=== PATIENT | female | born 1950 | race Caucasian/White ===

== ENCOUNTER → 2017-11-03 08:36 | Outpatient (CLI) | payer MEDICARE, SELFPAY ==
--- NOTE | 2017-11-03 08:43 | XR_ITS ---
XR DEXA axial skeleton HISTORY: ITS.REASON: POST MENOPAUSAL ORDERING PHYSICIAN: Alina Grider PATIENT AGE: 67 years FINDINGS: The BMD measured at the Right femoral neck is 0.805 g/cm squared with a T score of -1.7. This is considered Osteopenic according to the World Health Organization criteria. Fracture risk is Moderate. Treatment is advised. L1 L4 density has a T score of 1.7 which is normal IMPRESSION: Osteopenia with moderate fracture risk. Treatment recommended. Recommend follow-up exam November 2019
== END ==
PROVIDERS: Family Provider Internal Medicine Adolescent Medicine; PCP Internal Medicine Adolescent Medicine; Visit Provider Nurse Practitioner Family
DX: Z78.0 Asymptomatic menopausal state (principal); Z13.820 Encounter for screening for osteoporosis
CPT/HCPCS: 77080

== ENCOUNTER → 2020-03-09 08:41 | Outpatient (CLI) | payer MEDICARE, SELFPAY ==
--- NOTE | 2020-03-09 08:46 | XR_ITS ---
PROCEDURE: XR DEXA AXIAL SKELETON CLINICAL HISTORY: OSTEOPENIA, the patient is postmenopausal and currently is on calcium and vitamin-D. COMPARISON: No exams were available for comparison FINDINGS: The total right hip BMD is 0.984 grams/centimeters squared with a T-score of 0.3. The right femoral neck BMD is 0.753 grams/centimeter squared and the T-score is -0.9. The total left hip BMD is 0.901 grams/centimeter squared with a T-score of -0.3. The left femoral neck is 0.738 grams/centimeter squared. The lumbar spine BMD is 1.207 grams/centimeter squared with a T-score of 1.5. IMPRESSION: Essentially normal study although both femoral necks are borderline osteopenic, recommend follow-up study in approximately 2 years Based on these results a follow-up exam is recommended in 2 year. Dictated by: Dr. Spencer Reyes MD 03/09/2020 10:01 Dr. Spencer Reyes MD in [place] 03/09/2020 10:01
== END ==
PROVIDERS: PCP Internal Medicine Adolescent Medicine; Visit Provider Nurse Practitioner Family
DX: M85.89 Other specified disorders of bone density and structure, multiple sites (principal)
CPT/HCPCS: 77080

== ENCOUNTER → 2020-06-12 15:09 | Outpatient (CLI) | payer MEDICARE, SELFPAY ==
--- NOTE | 2020-06-12 15:09 | XR_ITS ---
PROCEDURE: XR FOOT WT BEARING RT 3V CLINICAL INDICATION: pain COMPARISON: No exams were available for comparison FINDINGS: No fracture or dislocation. No lytic or blastic change. There is normal mineralization. There are mild osteoarthritic changes at the navicular cuneiform and cuneiform tarsal joint dorsally. There is a prominent calcaneal spur and a prominent enthesophyte at the Achilles insertion. There are minimal osteoarthritic changes at the 1st MTP joint. Other findings:None. IMPRESSION: Degenerative changes as described above Dictated by: Bladimir Ybarra MD 06/12/2020 16:35 Bladimir Ybarra MD in [place] 06/12/2020 16:35
--- NOTE | 2020-06-12 15:09 | XR_ITS ---
PROCEDURE: XR FOOT WT BEARING LT 3V CLINICAL INDICATION: pain COMPARISON: No exams were available for comparison FINDINGS: No fracture or dislocation. No lytic or blastic change. There is normal mineralization. There are mild osteoarthritic changes of the navicular cuneiform joint. There is a prominent calcaneal spur and small Achilles enthesophyte. Other findings:None. IMPRESSION: As above, no acute finding Dictated by: Bladimir Ybarra MD 06/12/2020 16:50 Bladimir Ybarra MD in [place] 06/12/2020 16:50
--- NOTE | 2020-06-12 15:14 | MM_ITS ---
PROCEDURE: MM DIG SCREENING MAMM BI W/CAD Digital Breast Tomosynthesis Included CLINICAL INDICATION: SCREENING There is a history of breast cancer in the patient's paternal aunt. There has been previous bilateral breast reduction surgery COMPARISON: MG MY Digital Guillermo Screen BILAT from 01/04/2018 TECHNIQUE: Standard CC and MLO images and 3D Tomosynthesis was obtained. R2 CAD reviewed. FINDINGS: The breasts are composed primarily of fat minimal scattered fibroglandular densities in each breast. Couple of benign-appearing microcalcifications in each. There is a calcified oil cyst just deep to the nipple left breast likely secondary to previous breast reduction surgery and development of fat necrosis. This is stable and unchanged from the previous mammogram. There is no new or suspicious lesion in either breast and no suspicious microcalcifications. IMPRESSION: Fibrofatty parenchyma with postsurgical oil cyst deep to the nipple left breast with associated calcifications BI-RAD Category: 2 Benign Finding(s) FOLLOW-UP: 1YR 1 Year Follow-up (A letter has been sent to the patient regarding results of the study.) Dictated by: Dr. Spencer Reyes MD 06/27/2020 08:43 Dr. Spencer Reyes MD in [place] 06/27/2020 08:43
== END ==
PROVIDERS: PCP Internal Medicine Adolescent Medicine; Visit Provider Internal Medicine Adolescent Medicine
DX: M79.672 Pain in left foot (principal); Z12.31 Encounter for screening mammogram for malignant neoplasm of breast; M79.671 Pain in right foot
CPT/HCPCS: 73630; 77063; 77067

== ENCOUNTER → 2021-05-08 16:57 | Outpatient (CLI) | payer MEDICARE, SELFPAY ==
[2021-05-08 17:51] LABS: Basophils # 0.1 K/mm3 (0-0.2); Basophils % 1.1 % (0.1-2.0); Eosinophils # 0.1 K/mm3 (0.0-0.4); Eosinophils % 1.7 % (0.1-12.0); Hematocrit 46.1 % (37.0-47.0); Hemoglobin 14.9 g/dL (12.2-16.2); Lymphocytes % 49.6 % (10-50); Mean Corpuscular HGB Conc 32.3 g/dL (31.8-35.4); Mean Corpuscular Hemoglobin 30.5 pg (27.0-31.2); Mean Corpuscular Volume 94.3 fl (81-99); Mean Platelet Volume 8.7 fl (7.4-10.4); Monocytes # 0.3 K/mm3 (0.1-1.0); Monocytes % 4.9 % (1.7-9.3); Neutrophils # 2.6 K/mm3 (1.8-7.8); Neutrophils % 42.7 % (37.0-80.0); Platelet Count 246 K/mm3 (142-424); Red Blood Count 4.89 M/mm3 (4.20-5.40)
== END ==
PROVIDERS: Visit Provider Nurse Practitioner Family
DX: I10 Essential (primary) hypertension (principal); E03.9 Hypothyroidism, unspecified; E53.8 Deficiency of other specified B group vitamins; M85.89 Other specified disorders of bone density and structure, multiple sites
CPT/HCPCS: 85025

== ENCOUNTER → 2021-05-09 17:32 | Outpatient (CLI) | payer MEDICARE, SELFPAY ==
[2021-05-09 19:52] LABS: Alanine Aminotransferase 22 U/L (12-78); Albumin Level 4.3 g/dl (3.5-5.0); Albumin/Globulin Ratio 1.4 (1.1-1.8); Alkaline Phosphatase 60 U/L (38-126); Anion Gap 12.8 mEq/L (5-15); Aspartate Amino Transferase 34 U/L (14-36); Bilirubin,Total 0.5 mg/dl (0.2-1.3); Blood Urea Nitrogen 20 mg/dl (7-17); Calcium 9.3 mg/dl (8.4-10.2); Carbon Dioxide 29 mmol/L (22.0-30.0); Chloride 103 mmol/L (98-107); Cholesterol 222 mg/dl (140-200); Estimated Glomerular Filt Rate 83 ml/min (>60); GFR (African American) 101 ML/MIN (>60); Glucose 76 mg/dl (74-100); HDL Cholesterol 74 mg/dl (40-60); Potassium 4.8 mmoL/L (3.5-5.1); Sodium 140 mmol/L (136-145); Total Protein,Serum 7.3 g/dl (6.3-8.2); Triglycerides 65 mg/dl (30-150); VLDL Cholesterol 13 mg/dL (0-40)
[2021-05-09 20:02] LABS: Direct LDL Cholesterol 110.85 mg/dL (100-129)
[2021-05-09 20:22] LABS: Thyroid Stimulating Hormone 3.92 uIU/mL (0.465-4.68)
[2021-05-09 20:41] LABS: Vitamin B12 848 pg/mL (239-931)
[2021-05-09 21:34] LABS: 25-OH Vitamin D, Total 33.4 ng/mL (30-100)
== END ==
PROVIDERS: Visit Provider Nurse Practitioner Family
DX: I10 Essential (primary) hypertension (principal); E03.9 Hypothyroidism, unspecified; E53.8 Deficiency of other specified B group vitamins; M85.89 Other specified disorders of bone density and structure, multiple sites
CPT/HCPCS: 80053; 80061; 82306; 82607; 84443

== ENCOUNTER → 2022-09-10 09:06 | Outpatient (CLI) | payer MEDICARE, SELFPAY ==
--- NOTE | 2022-09-10 09:09 | MM_ITS ---
PROCEDURE INFORMATION: Exam: MG Bilateral Screening 3D Mammography Exam date and time: 09/10/2022 9:16 AM Age: 72 years old Clinical indication: Screening examination TECHNIQUE: Imaging protocol: Bilateral Screening tomosynthesis and 2D mammography including computer-aided detection (CAD) when performed. COMPARISON: 1. MG MM DIG SCREENING MAMM BI W/CAD 06/12/2020 3:41 PM 2. MG MY Digital Guillermo Screen BILAT 01/04/2018 4:06 PM FINDINGS: MAMMOGRAPHY: Breast composition: There are scattered areas of fibroglandular density. Mass: None. Architectural distortion: None. Calcifications: No suspicious calcifications. Asymmetric density: None. Skin thickening: None. Axillary adenopathy: None. IMPRESSION: No mammographic evidence of malignancy. Annual screening is recommended unless otherwise clinically indicated. ASSESSMENT: BI-RADS Category 1: Negative
--- NOTE | 2022-09-10 09:10 | XR_ITS ---
FINAL REPORT TECHNIQUE: Bone densitometry calculations of the lumbar spine and hip were obtained. CLINICAL HISTORY: post angelita COMPARISON: 03/09/2020 FINDINGS: DEXA BONE DENSITY AXIAL SKELETON Using L1-4, the bone mineral density of the spine is 1.282 g/cm2, corresponding to T-score of 2.1. Previously measured 1.207 g/cm2, corresponding to T-score of 1.5. Using the right hip, the bone mineral density of the femoral neck is 0.819 g/cm2, corresponding to a T-score of -0.3. Previously measured 0.753 g/cm2, corresponding to T-score of -0.9. NOTE: T-score: Standard deviation compared with peak bone mass of young adult mean. *Following the recommendations of the International Society of Bone densitometry, classification of hip BMD is based on the lower of two T-scores; total hip or femoral neck. IMPRESSION: Normal bone mineral density of the lumbar spine and right hip. Reviewed, Interpreted and Dictated by Ramesh Rico III, MD Transcribed by Octavia Zhang Authenticated and [facility]
--- NOTE | 2022-09-10 09:26 | XR_ITS ---
FINAL REPORT CLINICAL HISTORY: pain FINDINGS: LUMBAR SPINE Five views demonstrate no acute fracture. There are moderate degenerative changes. There is disc space narrowing at L5-S1. There is facet arthropathy in the lower lumbar spine There is no malalignment. IMPRESSION: Degenerative changes as detailed above. Reviewed, Interpreted and Dictated by Ramesh Rico III, MD Transcribed by Laura Ortega Authenticated and [facility]
[2022-09-10 10:36] LABS: Basophils # 0.1 K/mm3 (0-0.2); Basophils % 1.5 % (0.1-2.0); Eosinophils # 0.1 K/mm3 (0.0-0.4); Eosinophils % 2.6 % (0.1-12.0); Hematocrit 47.1 % (37.0-47.0); Lymphocytes % 38.2 % (10-50); Mean Corpuscular HGB Conc 31.8 g/dL (31.8-35.4); Mean Corpuscular Volume 91.3 fl (81-99); Mean Platelet Volume 9.3 fl (7.4-10.4); Monocytes # 0.3 K/mm3 (0.1-1.0); Monocytes % 5.2 % (1.7-9.3); Neutrophils # 2.8 K/mm3 (1.8-7.8); Neutrophils % 52.5 % (37.0-80.0); Platelet Count 265 K/mm3 (142-424); Red Blood Count 5.16 M/mm3 (4.20-5.40); White Blood Count 5.3 K/mm3 (4.8-10.8)
[2022-09-10 11:05] LABS: Erythrocyte Sedimentation Rate 10 mm/hr (0-30)
[2022-09-10 11:14] LABS: Alanine Aminotransferase 30 U/L (12-78); Albumin Level 4.5 g/dl (3.5-5.0); Albumin/Globulin Ratio 1.5 (1.1-1.8); Alkaline Phosphatase 61 U/L (38-126); Anion Gap 9.4 mEq/L (5-15); Aspartate Amino Transferase 31 U/L (14-36); Bilirubin,Total 0.7 mg/dl (0.2-1.3); Blood Urea Nitrogen 26 mg/dl (7-17); Calcium 9.3 mg/dl (8.4-10.2); Carbon Dioxide 29 mmol/L (22.0-30.0); Chloride 105 mmol/L (98-107); Chol/HDL Ratio 2.7 (1-3.5); Cholesterol 198 mg/dl (140-200); Estimated Glomerular Filt Rate 71 ml/min (>60); GFR (African American) 86 ML/MIN (>60); Glucose 88 mg/dl (74-100); HDL Cholesterol 74 mg/dl (40-60); Potassium 4.4 mmoL/L (3.5-5.1); Sodium 139 mmol/L (136-145); Total Protein,Serum 7.5 g/dl (6.3-8.2); Triglycerides 70 mg/dl (30-150); VLDL Cholesterol 14 mg/dL (0-40)
[2022-09-10 11:25] LABS: Direct LDL Cholesterol 87.92 mg/dL (100-129)
[2022-09-10 11:45] LABS: Thyroid Stimulating Hormone 1.77 uIU/mL (0.465-4.68)
[2022-09-10 12:04] LABS: Vitamin B12 860 pg/mL (239-931)
== END ==
PROVIDERS: PCP Internal Medicine Adolescent Medicine; Visit Provider Nurse Practitioner Family
DX: Z12.31 Encounter for screening mammogram for malignant neoplasm of breast (principal); Z78.0 Asymptomatic menopausal state; I10 Essential (primary) hypertension; E03.9 Hypothyroidism, unspecified; E53.8 Deficiency of other specified B group vitamins; M54.50 Low back pain, unspecified; M79.604 Pain in right leg
CPT/HCPCS: 36415; 72110; 77063; 77067; 77080; 80053; 80061; 82607; 84443; 85025; 85651

== ENCOUNTER 2022-10-20 09:00 | Outpatient (RCR) | payer MEDICARE, SELFPAY ==
--- NOTE | 2022-09-23 12:05 | HMH.PTOPEV ---
PT Outpatient Evaluation Rehab PT Outpatient Evaluation Start: 09/23/22 09:57 Freq: Status: Active Protocol: Document 09/23/22 09:57 [id number] (Rec: 09/23/22 10:49 PDESEROUX [id number]) E-signed By Arnoldo Hidalgo, PT Outpatient Therapy Subjective History Subjective History Pt. is a 72 year old female whom presents to [facility] Outpatient Physical Therapy Services in [place] for the initial evaluation this date( 09/23/22) w/ c/o chronic and intermittent lumbar/RLE hip and leg P! of insidious onset w/ DOI being 1.5 years ago. Pt . reports first noticing weakness in the RLE hip when trying to lift the leg up and into the truck 1.5 years ago. Pt. reports symptoms were more constant into the RLE then, but stated having some symptom relief w/ stretches she was given. Pt. reports currently having intermittent RLE hip, but reports having lower leg P ! every night that awakens her and worsen w/ rolling in bed. Pt. reports having no symptom relief w/ previous Voltaren gel. Recent diagnostic imaging (radiograph) positive for lumbar spine DDD per pt. report. Pt. denies having injections for current complaint. Pt. denies numbness /tingling in saddle paresthesia region nor into B/ L feet/digits. Pt. denies having any bowel/bladder dysfunction at this time. Current medications include Meloxicam, Vit. B-12 and D, and Levothyroxin. PMH includes history of OA and Hypothyroidism. Pt. denies history of cancer(self), denies diabetes, latex nor medicational allergy. Chief Complaint Pain,Paresthesia,Weakness Symptom Type Ache,Dull,Stabbing,Shooting Symptoms Relieved By
== END 2022-12-17 16:30 | disposition home or self-care (01) ==
LOC: PT 09:00
PROVIDERS: PCP Internal Medicine Adolescent Medicine; Visit Provider Nurse Practitioner Family
DX: M54.50 Low back pain, unspecified (principal); M79.604 Pain in right leg
CPT/HCPCS: 97110; 97140; 97163

== ENCOUNTER 2022-11-26 09:17 | Day surgery (SDC) | payer MEDICARE, SELFPAY ==
[2022-11-17 13:47] VITALS: BMI 37.2
[2022-11-26] VITALS (7 sets, daily range): BP systolic 135–179; BP diastolic 64–86; PULSE 69–82; RESP 16–18; TEMP 36.1–36.6; O2SAT 95–100; BMI 37.2
--- NOTE | 2022-11-26 10:17 | P.PN_ITS ---
[facility] Disclaimer: The information contained in this section may have been updated after the patient was seen, as this information can be updated by other users. Medical History (Updated 11/17/22 @ 13:47 by Christi Smith RN) No significant past medical history Surgical History (Updated 11/17/22 @ 13:44 by Christi Smiht RN) Hx of bilateral breast reduction surgery Family History (Updated 11/17/22 @ 13:46 by Christi Smith RN) Sister Family history of lymphoma Other Family history of myocardial infarction Hx of kidney disease Social History (Updated 11/17/22 @ 13:46 by Christi Smith RN) Smoking Status: Never smoker alcohol intake: never substance use type: denies use current occupational status: retired Travel in the last 8 weeks: None household members: spouse housing: house lives independently: No marital status: education level: high school service: No caffeine: Yes special rosemary needs: No do you feel safe at home: Yes victim of physical abuse: No victim of emotional abuse: No victim of sexual abuse: No would you like helpful sources: No [facility] Anesthesia Checklist Patient Identification Patient Identification: Arm Band Structural Data Admitted From: Home Planned Operative Procedure/s: colonoscopy Consent for Planned Operative Procedure(s) Verified: Yes Verified Documents: Surgical Consent and History and Physical NPO Status Verified Time NPO: 00:00 Additional verifications Anesthesia Reactions: No Airway Assessment C-Spine Mobility Assessed: Yes TMJ Mobility Assessed: Yes Dentition: Good Dentition Neurological Assessment Level of Consciousness: Awake and Alert Anesthesia Plan Anesthesia Risk discussed: Yes Anesthesia Plan: Verified ASA Class: II Anesthesia Type: MAC
--- NOTE | 2022-11-26 10:23 | P.PN_ITS ---
[facility] Disclaimer: The information contained in this section may have been updated after the patient was seen, as this information can be updated by other users. Medical History (Updated 11/17/22 @ 13:47 by Christi Smith RN) No significant past medical history Surgical History (Updated 11/17/22 @ 13:44 by Christi Smith RN) Hx of bilateral breast reduction surgery Family History (Updated 11/17/22 @ 13:46 by Christi Smith RN) Sister Family history of lymphoma Other Family history of myocardial infarction Hx of kidney disease Social History (Updated 11/17/22 @ 13:46 by Christi Smith RN) Smoking Status: Never smoker alcohol intake: never substance use type: denies use current occupational status: retired Travel in the last 8 weeks: None household members: spouse housing: house lives independently: No marital status: education level: high school service: No caffeine: Yes special rosemary needs: No do you feel safe at home: Yes victim of physical abuse: No victim of emotional abuse: No victim of sexual abuse: No would you like helpful sources: No [facility] Anesthesia Checklist Patient Identification Patient Identification: Verbal (Name & ) Structural Data Admitted From: Home Planned Operative Procedure/s: colonoscopy Consent for Planned Operative Procedure(s) Verified: Yes Additional verifications Anesthesia Reactions: No Airway Assessment C-Spine Mobility Assessed: Yes TMJ Mobility Assessed: Yes Dentition: Good Dentition Neurological Assessment Level of Consciousness: Awake, Alert and Appropriate Anesthesia Plan Anesthesia Risk discussed: Yes Anesthesia Plan: Verified ASA Class: II Anesthesia Type: MAC
--- NOTE | 2022-11-26 10:56 | HMH.SCOPE ---
Procedure: Date: 11/26/22 Patient Date of :: 1950 Procedure Performed:: Colonoscopy Indications:: Positive cologuard Performing Provider:: Trevon Pope MD Referring Provider:: Alina Grider APRN Sedation:: see rn records Procedure:: After placing the patient in the left lateral decubitus position, the colonoscopy was gently inserted into the rectum and under direct visualization advanced to the cecum which was identified by transillumination in the right lower quadrant, identification of the ileocecal valve, appendiceal orifice, and cecal strap. Color, texture, mucosa, and anatomy of the colon were carefully examined with the scope. Findings:: Anal canal: normal Rectum: normal Sigmoid colon: mild diverticulosis Descending colon: normal without polyps or inflammatory changes Splenic flexure: normal Transverse colon: normal without polyps or inflammatory changes Hepatic flexure: normal Ascending colon: Polyp less than 10 mm in size. Removed with cold snare polypectom Cecum: normal Terminal ileum: not visualized Bowel preparation was good Impression: Polyp of ascendng colon Mild diverticulosis Recommendations:: Await pathology results Repeat colonoscopy in 5 years Complications:: None Estimated blood obtained (mL): 0
--- NOTE | 2022-11-26 10:57 | P.PN_ITS ---
[facility] Disclaimer: The information contained in this section may have been updated after the patient was seen, as this information can be updated by other users. Medical History (Updated 11/17/22 @ 13:47 by Christi Smith RN) No significant past medical history Surgical History (Updated 11/17/22 @ 13:44 by Christi Smith RN) Hx of bilateral breast reduction surgery Family History (Updated 11/17/22 @ 13:46 by Christi Smith RN) Sister Family history of lymphoma Other Family history of myocardial infarction Hx of kidney disease Social History (Updated 11/17/22 @ 13:46 by Christi Smith RN) Smoking Status: Never smoker alcohol intake: never substance use type: denies use current occupational status: retired Travel in the last 8 weeks: None household members: spouse housing: house lives independently: No marital status: education level: high school service: No caffeine: Yes special rosemary needs: No do you feel safe at home: Yes victim of physical abuse: No victim of emotional abuse: No victim of sexual abuse: No would you like helpful sources: No [facility] Anesthesia Checklist Patient Identification Patient Identification: Verbal (Name & ) Structural Data Admitted From: Home Planned Operative Procedure/s: colonoscopy Consent for Planned Operative Procedure(s) Verified: Yes Additional verifications Anesthesia Reactions: No Airway Assessment C-Spine Mobility Assessed: Yes TMJ Mobility Assessed: Yes Dentition: Good Dentition Neurological Assessment Level of Consciousness: Awake, Alert and Appropriate Anesthesia Plan Anesthesia Risk discussed: Yes Anesthesia Plan: Verified ASA Class: II Anesthesia Type: MAC
== END 2022-11-26 11:35 | disposition home or self-care (01) ==
PROVIDERS: PCP Nurse Practitioner Family; Visit Provider Internal Medicine
PROC: 0DJD8ZZ Inspection of Lower Intestinal Tract, Via Natural or Artificial Opening Endoscopic (ICD-10-PCS; CPT 45378; principal; 2022-11-26 10:30)
DX: R19.5 Other fecal abnormalities (principal); K63.5 Polyp of colon; K57.30 Diverticulosis of large intestine without perforation or abscess without bleeding
CPT/HCPCS: 45385; 88305

== ENCOUNTER 2023-12-08 11:34 | Outpatient (CLI) | payer MEDICARE, SELFPAY ==
--- NOTE | 2023-12-08 11:45 | XR_ITS ---
FINAL REPORT CLINICAL HISTORY: PAIN, JOINT, KNEE RIGHT COMPARISON: None FINDINGS: Three views of the right knee reveal no evidence of fracture or dislocation. The bony alignment is normal. There is mild degenerative change. There is no evidence of joint effusion. No localized soft tissue abnormality is identified. IMPRESSION: Mild degenerative change without acute abnormality identified. Reviewed, Interpreted and Dictated by Ramseh Rico III, MD Transcribed by Josie Sanchez Authenticated and [facility]
== END 2023-12-08 23:59 | disposition home or self-care (01) ==
PROVIDERS: PCP Nurse Practitioner Family; Visit Provider Nurse Practitioner Family
DX: M25.561 Pain in right knee (principal)
CPT/HCPCS: 73562

== ENCOUNTER 2023-12-14 14:48 | Outpatient (CLI) | payer MEDICARE, SELFPAY ==
--- NOTE | 2023-12-14 14:52 | MM_ITS ---
PROCEDURE INFORMATION: Exam: MG Bilateral Screening 3D Mammography Exam date and time: 12/14/2023 2:45 PM Age: 73 years old Clinical indication: Screening mammogram TECHNIQUE: Imaging protocol: Bilateral Screening tomosynthesis and 2D mammography including computer-aided detection (CAD) when performed. COMPARISON: 1. MG MM DIG SCREENING MAMM BI W/CAD 09/10/2022 9:16 AM 2. MG MM DIG SCREENING MAMM BI W/CAD 06/12/2020 3:41 PM 3. MG MY Digital Guillermo Screen BILAT 01/04/2018 4:06 PM FINDINGS: MAMMOGRAPHY: Breast composition: The breasts are almost entirely fatty. Mass: None. Architectural distortion: Changes consistent with bilateral reduction mammoplasty are present. Calcifications: No new or suspicious calcifications are present Asymmetric density: No new or suspicious asymmetric density is present Skin thickening: None. Axillary adenopathy: None. IMPRESSION: No mammographic evidence of malignancy. Recommend annual screening mammography unless otherwise clinically indicated. ASSESSMENT: BI-RADS category 2: Benign.
== END 2023-12-14 23:59 | disposition home or self-care (01) ==
LOC: RAD 14:48
PROVIDERS: PCP Nurse Practitioner Family; Visit Provider Nurse Practitioner Family
DX: Z12.31 Encounter for screening mammogram for malignant neoplasm of breast (principal)
CPT/HCPCS: 77063; 77067

== ENCOUNTER 2023-12-18 12:48 | Outpatient (CLI) | payer MEDICARE, SELFPAY ==
--- NOTE | 2023-12-18 12:53 | MR_ITS ---
FINAL REPORT CLINICAL HISTORY: LOW BACK PAIN IN [facility] COMPARISON: None FINDINGS: Multiplanar MR imaging of the lumbar spine was performed without contrast. On the sagittal T2-weighted images, disc degeneration is seen throughout. There is mild retrolisthesis of L2 on L3 and L3 on L4. There are mild endplate changes. No bony mass is identified. The conus has an unremarkable appearance. L1-2: Annular disc bulge, facet arthropathy, and osteophytes. Mild right neural foraminal narrowing. L2-3: Annular disc bulge, facet arthropathy, and osteophytes. Mild bilateral neural foraminal narrowing. L3-4: Annular disc bulge, facet arthropathy, and osteophytes. Mild right and moderate left neural foraminal narrowing. L4-5: Annular disc bulge, facet arthropathy, and osteophytes. Moderate bilateral neural foraminal narrowing. Severe central canal stenosis with AP diameter of the thecal sac of 4 mm. L5-S1: Annular disc bulge, facet arthropathy, and osteophytes. Moderate bilateral neural foraminal narrowing. There is a 25 mm mass in the posterior left mid kidney. This does not appear to represent a simple cyst. Hemorrhagic cyst is favored. IMPRESSION: Multilevel degenerative disc disease and spondylosis as described. Severe central canal stenosis at L4-5. Posterior left kidney mass favors hemorrhagic cyst. Recommend renal mass protocol CT for further evaluation. Reviewed, Interpreted and Dictated by Ramesh Rico III, MD Transcribed by Josie Sanchez Authenticated and [facility]
== END 2023-12-18 23:59 | disposition home or self-care (01) ==
LOC: RAD 12:49
PROVIDERS: PCP Nurse Practitioner Family; Visit Provider Nurse Practitioner Family
DX: M54.50 Low back pain, unspecified (principal); M79.604 Pain in right leg
CPT/HCPCS: 72148

== ENCOUNTER 2023-12-28 13:56 | Outpatient (CLI) | payer MEDICARE, SELFPAY ==
--- NOTE | 2023-12-28 14:01 | US_ITS ---
FINAL REPORT CLINICAL HISTORY: ABNORMAL FINDINGS ON DIAGNOSTIC IMAGING COMPARISON: MRI lumbar spine 12/18/2023 FINDINGS: RENAL ULTRASOUND Ultrasound images of the kidneys were obtained. The right kidney measures 9.5 cm in length. Dominant simple cyst in the upper pole of the right kidney is seen measuring 55 mm. There is a 2nd adjacent crescentic cyst in the upper pole measuring 46 mm. The left kidney measures 11.5 cm in length. There is a 16 mm midpole renal cyst. However, there is a 2nd of the left renal lesion with shadowing measuring 27 mm which may be a calcified mass. Incidental note is made of cholelithiasis. IMPRESSION: Simple cysts right kidney. Indeterminate calcified mass left kidney. Recommend CT follow-up using renal mass protocol. Reviewed, Interpreted and Dictated by Pro Andino MD Transcribed by Josie Sanchez Authenticated and [facility]
== END 2023-12-28 23:59 | disposition home or self-care (01) ==
LOC: RAD 13:57
PROVIDERS: PCP Nurse Practitioner Family; Visit Provider Nurse Practitioner Family
DX: R93.429 Abnormal radiologic findings on diagnostic imaging of unspecified kidney (principal); N28.1 Cyst of kidney, acquired; N28.89 Other specified disorders of kidney and ureter
CPT/HCPCS: 76770

== ENCOUNTER 2024-01-25 09:13 | Outpatient (CLI) | payer MEDICARE, SELFPAY ==
--- NOTE | 2024-01-25 09:18 | CT_ITS ---
FINAL REPORT TECHNIQUE: Pre- and postcontrast images of the abdomen were performed by computed tomography. This study was performed with technique to keep radiation doses low as reasonably achievable, (ALARA). Individualized dose reduction techniques using automated exposure control or adjustment of the mA and/or kV according to the patient's size were employed. CLINICAL HISTORY: RENAL MASS pt states left kidney COMPARISON: Ultrasound dated 12/28/2023 FINDINGS: The lung bases are clear. The liver is normal in size and attenuation. The spleen is unremarkable. The adrenals are normal. The pancreas is unremarkable. There are adjacent right renal cysts, both within the upper poles. The lateral lesion is a complex cyst with a thin partially calcified rim measuring up to 45 mm. The more medial lesion is a simple cyst measuring up to 50mm. There are 2 left mid renal lesions. The larger more superior lesion has a calcified rim and measures up to 21 mm. This is compatible with a complex cyst. The more inferior lesion measures 17 mm. No definite enhancing renal lesion is seen. There is no evidence of appendicitis. There is moderate sigmoid diverticulosis. The uterus and ovaries are normal. IMPRESSION: Bilateral renal lesions most suggestive of complex cysts. 12-month follow-up is recommended. Reviewed, Interpreted and Dictated by Pro Andion MD Transcribed by Kamryn Harper Authenticated and [facility]
[2024-01-25 09:52] LABS: Blood Urea Nitrogen 27 mg/dl (7-17); Estimated Glomerular Filt Rate 62 ml/min (>60); GFR (African American) 75 ML/MIN (>60)
== END 2024-01-25 23:59 | disposition home or self-care (01) ==
LOC: RAD 09:14
PROVIDERS: PCP Nurse Practitioner Family; Visit Provider Nurse Practitioner Family
DX: N28.89 Other specified disorders of kidney and ureter (principal)
CPT/HCPCS: 36415; 74170; 82565; 84520; Q9967

== ENCOUNTER 2024-03-02 08:11 | Outpatient (CLI) | payer MEDICARE, SELFPAY ==
--- NOTE | 2024-03-02 08:11 | MR_ITS ---
FINAL REPORT CLINICAL HISTORY: Rt Knee Pain COMPARISON: None FINDINGS: Multi planar MR imaging was performed of the right knee. The anterior and posterior cruciate ligaments are intact. The quadriceps and patellar tendons are intact. There is a full-thickness tear of the posterior horn of the medial meniscus. The medial and lateral collateral ligaments appear intact. The medial and lateral retinacula appear intact. There is extensive bone marrow edema in the medial tibial plateau with an osteochondral lesion measuring 1.3 cm in size. There is mild bone marrow edema along the articular surface of the medial femoral condyle. There is grade II chondromalacia of the undersurface of the patella, particularly severe in the lateral facet. A trace joint effusion is present. No evidence of soft tissue inflammatory reaction. IMPRESSION: Full-thickness tear posterior horn of the medial meniscus. Extensive bone marrow edema in the medial tibial plateau, with a 1.3 cm osteochondral lesion. 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 Reviewed, Interpreted and Dictated by Alberto Stanley MD Transcribed by Frances Payne Authenticated and [facility]
== END 2024-03-02 23:59 | disposition home or self-care (01) ==
LOC: RAD 08:11
PROVIDERS: PCP Nurse Practitioner Family; Visit Provider Physician Assistant
DX: M23.91 Unspecified internal derangement of right knee (principal)
CPT/HCPCS: 73721

== ENCOUNTER 2024-06-03 10:07 | Outpatient (CLI) | payer MEDICARE, SELFPAY ==
--- NOTE | 2024-06-03 10:26 | ECG_ITS ---
APPROVED REPORT Exam: Resting ECG HR:70 bpm ECG Measurements Heart Rate 70 AXES DE 144 P 5 QRSd 78 QRS 23 QT 387 T 45 QTc 408 Conclusion SINUS RHYTHM LOW QRS VOLTAGE IN PRECORDIAL LEADS [QRS DEFLECTION < 1.0 mV IN CHEST LEADS] BORDERLINE ECG UNCONFIRMED REPORT Electronically signed by : Dutch Red MD 06/05/2024 11:18:41
[2024-06-03 10:30] VITALS: BMI 35.0
[2024-06-03 10:49] LABS: Chloride 106 mmol/L (98-107); Potassium 3.9 mmoL/L (3.5-5.1); Sodium 142 mmol/L (136-145)
[2024-06-03 10:51] LABS: Basophils # 0.1 K/mm3 (0-0.2); Eosinophils # 0.1 K/mm3 (0.0-0.4); Eosinophils % 1.2 % (0.1-12.0); Hematocrit 43.5 % (37.0-47.0); Hemoglobin 14.4 g/dL (12.2-16.2); Lymphocytes # 2.1 K/mm3 (0.7-4.5); Lymphocytes % 37.7 % (10-50); Mean Corpuscular HGB Conc 33.2 g/dL (31.8-35.4); Mean Corpuscular Hemoglobin 30.3 pg (27.0-31.2); Mean Corpuscular Volume 91.2 fl (81-99); Mean Platelet Volume 8.5 fl (7.4-10.4); Monocytes # 0.4 K/mm3 (0.1-1.0); Monocytes % 6.5 % (1.7-9.3); Neutrophils % 53.6 % (37.0-80.0); Platelet Count 230 K/mm3 (142-424); Red Blood Count 4.77 M/mm3 (4.20-5.40); Red Cell Distribution Width 13.5 % (11.5-17.5); White Blood Count 5.6 K/mm3 (4.8-10.8)
[2024-06-03 10:52] LABS: Anion Gap 9.9 mEq/L (5-15); Blood Urea Nitrogen 23 mg/dl (7-17); Calcium 9.8 mg/dl (8.4-10.2); Carbon Dioxide 30 mmol/L (22.0-30.0); Creatinine Clearance Estimated 73 mL/min (50-200); Estimated Glomerular Filt Rate 62 ml/min (>60); GFR (African American) 75 ML/MIN (>60); Glucose 91 mg/dl (74-100)
== END 2024-06-03 23:59 | disposition home or self-care (01) ==
PROVIDERS: Nurse Anesthetist, Certified Registered; PCP Nurse Practitioner Family; Visit Provider Orthopaedic Surgery
DX: Z01.810 Encounter for preprocedural cardiovascular examination (principal); M25.561 Pain in right knee; R94.31 Abnormal electrocardiogram [ECG] [EKG]
CPT/HCPCS: 80048; 85025; 93005

== ENCOUNTER 2024-06-08 06:01 | Day surgery (SDC) | payer MEDICARE, SELFPAY ==
[2024-06-03 10:17] VITALS: BMI 35.0
[2024-06-08] VITALS (10 sets, daily range): BP systolic 130–165; BP diastolic 69–90; PULSE 72–87; RESP 12–18; TEMP 36.2–43; O2SAT 96–99
[2024-06-08] MEDS: LACTATED RINGERS 1000ML 1,000 ML 100 ML IV (06:30)
--- NOTE | 2024-06-08 07:09 | P.PNANES_ITS ---
[facility] Disclaimer: The information contained in this section may have been updated after the patient was seen, as this information can be updated by other users. Medical History Hypothyroid Surgical History History of colonoscopy Hx of bilateral breast reduction surgery Family History Sister Family history of lymphoma Other Family history of myocardial infarction Hx of kidney disease Social History Smoking Status: Never smoker alcohol intake: never substance use type: denies use current occupational status: retired Travel in the last 8 weeks: None household members: spouse housing: house lives independently: No marital status: education level: high school service: No caffeine: Yes special rosemary needs: No do you feel safe at home: Yes victim of physical abuse: No victim of emotional abuse: No victim of sexual abuse: No would you like helpful sources: No [facility] Anesthesia Checklist Patient Identification Patient Identification: Arm Band and Family Structural Data Admitted From: Home Planned Operative Procedure/s: Right Knee ATS Consent for Planned Operative Procedure(s) Verified: Yes Verified Documents: Surgical Consent and History and Physical NPO Status Verified Time NPO: 00:00 Additional verifications Patient : No Anesthesia Reactions: No Hx Blood Transfusions: No Blood Transfusion Reaction: No Cephalosporin Allergy: No Previous Colonoscopy: Yes Airway Assessment Mallampati Score:: Class II C-Spine Mobility Assessed: Yes TMJ Mobility Assessed: Yes Dentition: Good Dentition Neurological Assessment Level of Consciousness: Awake, Alert, Appropriate and Follows Commands Hx Seizures: No Numbness or tingling in extremities: No Anesthesia Plan Anesthesia Risk discussed: Yes ASA Class: II Anesthesia Type: General Preoperative Comments Pre-Operative Comments: Hypothyroid. Advanced age.
[2024-06-08] MEDS: CEFAZOLIN SODIUM 2 GM in 0.9 % SODIUM CHLORIDE 100 ML IV (07:45)
[2024-06-08] MEDS: BUPIVACAINE 0.25% 30ML VIAL 75 MG (08:20)
--- NOTE | 2024-06-08 08:22 | EXP.OP.NOTE ---
Date of procedure: 06/08/24 Pre-op Diagnosis:: Right knee medial meniscus tear complex Post-op Diagnosis:: Same Procedure performed:: Right knee arthroscopy with partial medial meniscectomy Surgeon:: Pino Michaud DO [employer]IST[employer] COUNTY ENGINEER:: Erick Gutiérrez Anesthesia: GETA Estimated blood loss (mL): 0 Operative findings:: Macerated tear body medial meniscus Operative note:: Patient identified preoperatively. Right knee marked with yes my initials. Transferred operative suite. Placed upon operating bed. General anesthesia ministered airway secured. Right lower extremity prepped and draped within the leg chapa. Once prepped and draped final operative timeout performed to identify proper patient procedure and extremity. Everyone involved the case agreed. There is no counter indications to beginning. Did receive preoperative antibiotics. Marking pen was used to glenn bony landmarks knee and standard portal sites. Esmarch was used to exsanguinate the extremity pneumatic tourniquet inflated to 300 mmHg. Skin knife was used to incise standard anterior lateral portal. Blunt with trocar was placed in the patellofemoral joint exchange with a camera. I swept directly into the medial joint line where the anterior medial portal was made with the help of an 18-gauge spinal needle for proper trajectory. This then was exchanged with a probe. There is a large macerated complex tear of the body of the medial meniscus. Using a combination of straight biter and sucker shaver partial medial meniscectomy was performed back to stable rim. There was some loose macey cartilage on the medial femoral condyle which was lightly debrided and some loose bodies with cartilage present in the medial joint line which were removed with sucker shaver. Attention is brought to the intercondylar notch the ACL was seen and intact. Attention was then brought to the lateral joint line within the lateral joint line the cartilage is intact and only mildly softened there is no meniscus tear. The joint swept into the medial and lateral gutters. Within the medial gutter there was a large synovial fold of plica this was debrided with a sucker shaver. Small intra-articular fragments of meniscus or cartilage were seen in the patellofemoral joint and these were removed with a sucker shaver. No further pathology was seen. Cameras removed. The joint was drained. Local anesthesia filtrated to the portal sites. Skin closed with nylon stitch. Sterile dressing placed from toe to thigh. Patient waken anesthesia taken recovery in stable condition. Condition: stable Disposition: PACU Complications:: None apparent
--- NOTE | 2024-06-08 08:56 | SUR.PHASEI ---
0823 -Clinic pharmacy contact for meds to beds @ this time.
--- NOTE | 2024-06-08 09:02 | P.PNANES_ITS ---
[facility] Anesthesia Record Part I Anesthesia Record I Intake, IV Amount: 850 Hydration: Adequate Estimated blood loss (mL): 0 Urine output (mL): 0 Blood Products used (#): none Blood Pressure: 138/83 SaO2: 98 Pulse Rate: 80 Airway Patency: Patent Respiratory Rate: 12 Temperature: 99.4 F Patient is:: Drowsy and Stable Stable to PACU at:: 08:29
--- NOTE | 2024-06-09 13:13 | EXP.ANES.II ---
[facility] Anesthesia Record Part II Anesthesia Record Part II Discharge Time: 08:59 Destination: Surgical Day Care (OP Surgery) PACU nurse assessment reviewed?: Yes Patient Condition:: Good Anesthesia Complications:: None Swallowing reflex intact?: Yes Airway Patency: Patent Cyanosis?: No Blood Pressure: 145/90 SaO2: 99 Respiratory Rate: 16 Pulse Rate: 82 Temperature: 97.5 F Mental Status: Alert & Oriented Pain level:: 0 Nausea and/or vomitting:: None Intake, IV Amount: 0 Hydration: Adequate
[2024-06-09 13:14] VITALS: BP 145/90; PULSE 82; RESP 16; TEMP 36.4; O2SAT 99
== END 2024-06-08 09:30 | disposition home or self-care (01) ==
PROVIDERS: PCP Nurse Practitioner Family; Visit Provider Orthopaedic Surgery
PROC: (CPT 29870; principal; 2024-06-08 07:30)
DX: S83.231A Complex tear of medial meniscus, current injury, right knee, initial encounter (principal)
CPT/HCPCS: 29881; 96374; J0690; J1100; J2250; J2405; J3010; J7120

== ENCOUNTER 2024-11-05 09:12 | Outpatient (CLI) | payer MEDICARE, SELFPAY ==
--- NOTE | 2024-11-05 | XR_ITS ---
PROCEDURE INFORMATION: Exam: XR Left Hip Exam date and time: 11/05/2024 9:19 AM Age: 74 years old Clinical indication: Hip pain; Left hip; Fall 1 yr ago. Pain in hip, radiating down TECHNIQUE: Imaging protocol: Radiologic exam of the left hip. Views: 2 or 3 views hip with pelvis when performed. COMPARISON: CT ABDOMEN WO/W CON 01/25/2024 10:16 AM FINDINGS: Bones/joints: No acute fracture or dislocation. Mild degenerative change of the hips. Degenerative changes of the included lower lumbar spine. Soft tissues: Unremarkable. IMPRESSION: No acute findings.
== END 2024-11-05 23:59 | disposition home or self-care (01) ==
LOC: RAD 09:13
PROVIDERS: PCP Nurse Practitioner Family; Visit Provider Nurse Practitioner Family
DX: M25.552 Pain in left hip (principal)
CPT/HCPCS: 73502